=== PATIENT | male | born 1990 | race Caucasian/White ===

== ENCOUNTER 2024-07-01 08:36 | Inpatient (IN) | payer MEDICARE, OTHER ==
[~2024-07-01] VITALS: Ht 172.7 cm; Wt 79.0 kg
[~2024-07-01 08:36] MED LIST: [UNRECOGNIZED DRUG - REMARK]
--- NOTE | 2024-07-01 09:33 | ED.PDOC ---
History of Present Illness HPI Comments 33 y/o M, with a Hx of seizures and EtOH abuse, is BIBA for c/o seizure and generalized facial pain and bruising s/p fall and head injury, today. Per EMS report, patient is reported to have had a single, witnessed seizure episode characterized by "foaming at the mouth" that lasted in 1x minute in duration, t his morning. Patient was stated to also had fallen forward and face-planted onto the ground during seizure onset. On scene, patient was found in post-ictal state, with no noted bleeding, by EMS staff. At time of assessment, patient is back to his baseline and admits to, recently, drinking a pint of vodka everyday, with last intake at 0300, today, in addition to switching to Keppra from Dilantin. He denies having any additional injuries or other associated symptoms or modifiers at this time. Chief Complaint: Seizure Time Seen by MD: 08:55 Primary Care Provider: UNABLE TO RECALL Reviewed Notes: Nurses Notes, Filer Repairer Notes, Medications, Allergies Allergies: Coded Allergies: NO KNOWN ALLERGIES (Unverified , 01/28/13) Home Meds Reported Medications [Unable To Recall Seizure Medication] No Conflict Check 01/28/13 Information Source: Patient, Emergency Med Personnel Mode of Arrival: EMS Severity: Moderate Timing: Hours Duration: Minutes Prehospital treatment: 12 Lead EKG, Crm System Administrator Past Medical History PAST MEDICAL HISTORY: Seizures Surgical History: Denies all surgeries Family History Family History: Unknown Social History Smoker: Non-Smoker Alcohol: Heavy Drugs: Denies Drug Use Lives In: Home EENTM: reports: others (facial pain ) Neurological: reports: seizure Integumetry: reports: bruises (generalized facial bruising ) All Other Systems: Reviewed and Negative (negative unless otherwise stated above or in HPI) Physical Exam General Appearance: Moderate Distress HEENT: Normal ENT Inspection, Pharynx Normal, TMs Normal Neck: Full Range of Motion, Non-Tender, Normal, Normal Inspection Respiratory: Chest Non-Tender, Lungs Clear, No Accessory Muscle Use, No Respiratory Distress, Normal Breath Sounds Cardiovascular: No Edema, No JVD, No Murmur, No Gallop, Normal Peripheral Pulses, Regular Rate/Rhythm Breast Exam: Deferred Gastrointestinal: No Organomegaly, Non Tender, No Pulsatile Mass, Normal Bowel Sounds, Soft Genitalia: Deferred Pelvic: Deferred Rectal: Deferred Extremities: No calf tenderness, Normal capillary refill, Normal inspection, Normal range of motion, Non-tender, No pedal edema Musculoskeletal : Apperance: Normal Neurologic: Disoriented, No Motor Deficits, Normal Affect, No Sensory Deficits Cerebellar Function: NOT DONE Reflexes: NOT DONE Skin: Bruises (Nasal), Dry, Normal Color, Warm Peripheral Pulses: 3+ Radial (R), 3+ Radial (L) Lymphatic: No Adenopathy Was a procedure done? Was a procedure done?: No Differential Dx Considerations may include: seizures, pseudoseizures, EtOH-induced seizures, dehydration, electrolyte imbalance, closed head injury, fractures, contusion, bruising X-Ray, Labs, Meds, VS Vital Signs Date Time Temp Pulse Resp B/P (MAP) Pulse Ox O2 Delivery O2 Flow Rate FiO2 07/01/24 10:00 97.8 73 18 110/72 (85) 100 97.8 07/01/24 09:39 83 15 99 Nasal Cannula* 2 28 07/01/24 09:16 83 18 105/68 (80) 98 07/01/24 08:44 97.8 103 16 142/98 (113) 98 Lab Test 07/01/24 09:58 07/01/24 09:09 Range/Units White Blood Count 14.1 H 4.4-10.8 10^3/uL Red Blood Count 5.24 4.5-5.90 10^6/uL Hemoglobin 14.2 13.5-17.5 g/dL Hematocrit 44.0 41.0-53.0 % Mean Corpuscular Volume 84.0 80.0-100.0 fL Mean Corpuscular Hemoglobin 27.1 L 28.0-32.0 pg Mean Corpuscular Hemoglobin Concent 32.3 32.0-36.0 g/dL Red Cell Distribution Width 13.7 11.8-14.3 % Platelet Count 314 140-450 10^3/uL Mean Platelet Volume 8.1 6.9-10.8 fL Neutrophils (%) (Auto) 82.8 H 37.0-80.0 % Lymphocytes (%) (Auto) 9.8 L 10.0-50.0 % Monocytes (%) (Auto) 6.3 0.0-12.0 % Eosinophils (%) (Auto) 0.8 0.0-7.0 % Basophils (%) (Auto) 0.3 0.0-2.0 % Neutrophils # (Auto) 11.7 H 1.6-8.6 10 ^3/uL Lymphocytes # (Auto) 1.4 0.4-5.4 10 ^3/uL Monocytes # (Auto) 0.9 0-1.3 10 ^3/uL Eosinophils # (Auto) 0.1 0-0.8 10 ^3/uL Basophils # (Auto) 0 0-0.2 10 ^3/uL Nucleated Red Blood Cells 0.0 % Sodium Level 141 136-145 mmol/L Potassium Level 4.7 3.5-5.1 mmol/L Chloride Level 112 H 98-107 mmol/L Carbon Dioxide Level 24 20-31 mmol/L Anion Gap 5 5-15 Blood Urea Nitrogen 9 9-23 mg/dL Creatinine 0.89 0.700-1.30 mg/dL Glomerular Filtration Rate Calc 118 >90 mL/min BUN/Creatinine Ratio 10.1 10.0-20.0 Serum Glucose 97 74-106 mg/dL Calcium Level 9.9 8.7-10.4 mg/dL Plasma/Serum Blood Alcohol < 3.0 <10 mg/dL POC Glucose 102 70-106 mg/dl Current Medications Medications (Trade) Dose Ordered Sig/Daniel Route Start Time Stop Time Status Last Admin Sodium Chloride 1,000 ml @ 1,000 mls/hr Q1H ONCE IV 07/01/24 09:30 07/01/24 10:29 DC 07/01/24 09:49 Sodium Chloride 1,000 ml @ 150 mls/hr Q6H40M ONCE IV 07/01/24 09:30 07/01/24 16:09 07/01/24 09:49 Thiamine HCl 100 mg ONCE ONCE IV 07/01/24 09:30 07/01/24 09:31 DC 07/01/24 09:49 Acetaminophen/ Hydrocodone Bitart ([place] 5/325MG Tab) 1 tab ONCE ONCE PO 07/01/24 10:30 07/01/24 10:31 DC 07/01/24 10:39 Patient postictal. Does have bruising of the nose. Fell on his face. Vitals stable. Answering all questions. History of alcohol abuse. Establish intravenous access. Was given fluids. Was given thiamine. Reviewed his previous history. Continue cardiac monitoring. Time of 1ST Reevaluation: 09:25 Reevaluation 1ST: Unchanged Patient Education/Counseling: Diagnosis, Treatment Family Education/Counseling: No Family Present Departure 1 Departure Time of Disposition: 09:43 Impression: Primary Impression: Alcohol abuse Additional Impression: Seizure Disposition: 09 ADMITTED INPATIENT Admit to: Med Surg Condition: Guarded Critical Care Note Critical Care Time?: Yes (45 min-critical care time only) Stability Stability form required: No Heart Score Heart Score: Heart Score Response (Comments) Value History N/A 0 EKG N/A 0 Age N/A 0 Risk Factors N/A 0 Troponin N/A 0 Total 0 I personally scribed for KYLIE DEL REAL MD ([email or web address]) on 07/01/24 at 09:33. Electronically submitted by Ag Cruz ([email or web address]). KYLIE DEL REAL MD Jul 01, 2024 09:33
[2024-07-01 09:39] VITALS: PULSE 83; RESP 15; O2SAT 99
[2024-07-01] MEDS: THIAMINE 100mg/ml INJ (200mg/2ml VIAL) IV ONE (09:49)
[2024-07-01] MEDS: SODIUM CHLORIDE 0.9% 1,000 ML IV ONE ×4 (09:49→12:30)
[2024-07-01 10:00] VITALS: TEMP 97.8
[2024-07-01] MEDS: HYDROcodone-ACET 5/325MG TAB PO ONE (10:39)
[2024-07-01 10:41] LABS: Basophils # (auto) 0 10 ^3/uL (0-0.2); Basophils % (auto) 0.3 % (0.0-2.0); Eosinophils # (auto) 0.1 10 ^3/uL (0-0.8); Eosinophils % (auto) 0.8 % (0.0-7.0); Hemoglobin 14.2 g/dL (13.5-17.5); Lymphocytes # (auto) 1.4 10 ^3/uL (0.4-5.4); Lymphocytes % (auto) 9.8 % (10.0-50.0); Mean Corpuscular Hemoglobin 27.1 pg (28.0-32.0); Mean Corpuscular Hgb Conc. 32.3 g/dL (32.0-36.0); Monocytes # (auto) 0.9 10 ^3/uL (0-1.3); Monocytes % (auto) 6.3 % (0.0-12.0); Neutrophils # (auto) 11.7 10 ^3/uL (1.6-8.6); Neutrophils % (auto) 82.8 % (37.0-80.0); Platelet Count (auto) 314 10^3/uL (140-450); Red Blood Cells 5.24 10^6/uL (4.5-5.90); Red Cell Distribution Width 13.7 % (11.8-14.3); White Blood Cell 14.1 10^3/uL (4.4-10.8)
[2024-07-01 10:53] LABS: Anion Gap 5 (5-15); Carbon Dioxide 24 mmol/L (20-31); Potassium 4.7 mmol/L (3.5-5.1); Sodium 141 mmol/L (136-145)
[2024-07-01 10:54] LABS: Calcium 9.9 mg/dL (8.7-10.4)
[2024-07-01 10:56] LABS: Chloride 112 mmol/L (98-107)
[2024-07-01 10:59] LABS: BUN/Creatinine Ratio 10.1 (10.0-20.0); Glucose 97 mg/dL (74-106)
[2024-07-01 11:14] LABS: Blood Alcohol < 3.0 mg/dL (<10); Blood Urea Nitrogen 9 mg/dL (9-23)
[2024-07-01] MEDS: LORazepam 2MG/ML-1ML VIAL IV ONE ×2 (12:41→13:00)
[2024-07-01] MEDS: LORazepam 2MG/ML-1ML VIAL IV PRN (12:41)
[2024-07-01] MEDS: LORazepam 2MG/ML-1ML VIAL ONE (12:41)
[2024-07-01] MEDS ORDERED: ACETAMINOPHEN 325 MG TAB PO PRN (13:00)
[2024-07-01] MEDS ORDERED: HYDROcodone-ACET 5/325MG TAB PO PRN (13:00)
[2024-07-01] MEDS ORDERED: DOCUSATE SOD 100 MG CAP PO PRN (13:00)
[2024-07-01] MEDS ORDERED: ONDANSETRON HCL 4 MG/2 ML VIAL IV PRN (13:00)
--- NOTE | 2024-07-01 13:13 | DVHHP2 ---
History of Present Illness Reason for Visit: Seizure disorder History of Present Illness Patient is a 33-year-old male with past medical history of seizure who presented to [facility] ED for evaluation of seizures activity. Patient's reports he was experiencing seizure activities at home associated with gener alized weakness, fell and had head injury, swollen right eyes, bruises all over his face. As reported by EMS, patient had a single, witnessed seizure episode characterized by "foaming at the mouth" that lasted in 1x minute in duration, this morning. Patient was stated to also had fallen forward and face-planted onto the ground during seizure onset. On scene, patient was found in post-ictal state, with no noted bleeding. Patient was seen and evaluated in the ED, laboratory data shows WBC 14.1, platelets 304, sodium 141, potassium 4.7, BUN 9, creatinine 0.89, GFR 118, glucose 97, blood pressure 110/72, heart rate 72, temperature 97.8 F, O2 saturation 99% on oxygen. Please see medication orders section in the computer. On my assessment, patient's at bedside, no headache, no dizziness, no diaphoresis, no palpitations, no loss of consciousness, no shortness of breaths, no nausea, no vomiting, no fever, no chills. Patient was admitted for further evaluation and medical management. Past Medical History Seizures Past Surgical History Denies all surgeries Family History Reviewed, noncontributory to the management of this case. Past Social History The patient lives at home, drinks alcohol heavily, denies cigarettes or illicit drugs abuse. Review of Systems Constitutional: Yes: Weakness, Other (Head trauma); No: Fever, Chills, Sweats, Malaise Eyes: No: Pain, Vision change, Conjunctivae inflammation, Eyelid inflammation, Other, Redness ENT: No: Ear pain, Ear discharge, Nose pain, Nose discharge, Nose congestion, Mouth pain, Mouth swelling, Throat pain, Throat swelling, Other Respiratory: No: Cough, Dry, Shortness of breath, SOB with excertion, Wheezing, Hemoptysis, Pleuritic Pain, Sputum, Wheezing, Other Cardiovascular: No: Chest Pain, Palpitations, Orthopnea, Paroxysmal Noc. Dyspnea, Edema, Lt Headedness, Other Gastrointestinal: No: Nausea, Vomiting, Abdominal Pain, Diarrhea, Constipation, Melena, Hematochezia, Other Genitourinary: No Dysuria, No Frequency, No Incontinence, No Hematuria, No Retention, No Other Musculoskeletal: No: other, neck pain, shoulder pain, arm pain, back pain, hand pain, leg pain, foot pain Skin: Other (Facial bruises); No: Rash, Lesions, Jaundice, Bruising Neurological: Seizures; No: Weakness, Numbness, Incoordination, Change in speech, Confusion, Other Allergies: Coded Allergies: NO KNOWN ALLERGIES (Unverified , 01/28/13) Medications Current Medications Medications Dose Ordered Sig/Daniel Route Start Time Stop Time Status Last Admin Dose Admin Lorazepam 1 mg Q5MINP PRN IV 07/01/24 12:30 07/01/24 12:41 1 MG Thiamine HCl 100 mg DAILY PO 07/02/24 10:00 UNV Folic Acid 1 mg DAILY PO 07/02/24 10:00 UNV Multivitamins 1 tab DAILY PO 07/02/24 10:00 UNV Sodium Chloride 10 ml Q8HR IV 07/01/24 14:00 UNV Acetaminophen/ Hydrocodone Bitart 1 tab Q4HP PRN PO 07/01/24 13:00 UNV Ondansetron HCl 4 mg Q4HP PRN IV 07/01/24 13:00 UNV Docusate Sodium 100 mg BIDPRN PRN PO 07/01/24 13:00 UNV Acetaminophen 650 mg Q6HP PRN PO 07/01/24 13:00 UNV Exam Vital Signs Vital Signs Date Time Temp Pulse Resp B/P (MAP) Pulse Ox O2 Delivery O2 Flow Rate FiO2 07/01/24 12:00 95 18 106/61 (76) 100 07/01/24 10:00 97.8 97.8 07/01/24 09:39 Nasal Cannula* 2 28 General Appearance: Alert, Oriented X3, Cooperative, No acute distress HEENT: Atraumatic, PERRLA, EOMI, Mucous membr. moist/pink Respiratory: Clear to auscultation, Normal air movement Cardiovascular: Regular rate, Normal S1, Normal S2, No murmurs Abdominal: Normal bowel sounds, Soft, No tenderness, No hepatospenomegaly, No masses Extremities: No clubbing, No cyanosis, No edema, Normal pulses, No tenderness/swelling Skin: No rashes, No breakdown, No significant lesion Neuro: Normal speech, Normal tone, Sensation intact, Cranial nerves 3-12 NL, Reflexes 2+, Other (Head trauma) Psych/Mental Status: Mental status NL, Mood NL Labs/Xrays Labs Test 07/01/24 09:58 07/01/24 09:09 Range/Units White Blood Count 14.1 H 4.4-10.8 10^3/uL Red Blood Count 5.24 4.5-5.90 10^6/uL Hemoglobin 14.2 13.5-17.5 g/dL Hematocrit 44.0 41.0-53.0 % Mean Corpuscular Volume 84.0 80.0-100.0 fL Mean Corpuscular Hemoglobin 27.1 L 28.0-32.0 pg Mean Corpuscular Hemoglobin Concent 32.3 32.0-36.0 g/dL Red Cell Distribution Width 13.7 11.8-14.3 % Platelet Count 314 140-450 10^3/uL Mean Platelet Volume 8.1 6.9-10.8 fL Neutrophils (%) (Auto) 82.8 H 37.0-80.0 % Lymphocytes (%) (Auto) 9.8 L 10.0-50.0 % Monocytes (%) (Auto) 6.3 0.0-12.0 % Eosinophils (%) (Auto) 0.8 0.0-7.0 % Basophils (%) (Auto) 0.3 0.0-2.0 % Neutrophils # (Auto) 11.7 H 1.6-8.6 10 ^3/uL Lymphocytes # (Auto) 1.4 0.4-5.4 10 ^3/uL Monocytes # (Auto) 0.9 0-1.3 10 ^3/uL Eosinophils # (Auto) 0.1 0-0.8 10 ^3/uL Basophils # (Auto) 0 0-0.2 10 ^3/uL Nucleated Red Blood Cells 0.0 % Sodium Level 141 136-145 mmol/L Potassium Level 4.7 3.5-5.1 mmol/L Chloride Level 112 H 98-107 mmol/L Carbon Dioxide Level 24 20-31 mmol/L Anion Gap 5 5-15 Blood Urea Nitrogen 9 9-23 mg/dL Creatinine 0.89 0.700-1.30 mg/dL Glomerular Filtration Rate Calc 118 >90 mL/min BUN/Creatinine Ratio 10.1 10.0-20.0 Serum Glucose 97 74-106 mg/dL Calcium Level 9.9 8.7-10.4 mg/dL Plasma/Serum Blood Alcohol < 3.0 <10 mg/dL POC Glucose 102 70-106 mg/dl PATIENT: RONALD JAMIL ACCT: [id number] UNIT: [id number] : 1990 LOC: TELE ROOM / BED: [address] [place] [address] AGE / SEX: 33 / M ADM STATUS: ADM IN SERVICE 1335 ORDERING PHYSICIAN: ARLETTE CAIN DNP PROCEDURE(s): HWOCT - HEAD WITHOUT CONTRAST REASON: head trauma ORDER NUMBER(s): [id number], ACCESSION NUMBER(s): [id number] CT brain without contrast CLINICAL INDICATION: Altered mental status Technique: The study was performed in a multidetector scanner. This study performed taking axial images from the skull base up to the vertex. Both brain and bone windows are photographed. Dose lowering techniques have been used including automated exposure control and adjustment of mA and/or KV according to patient size. Findings: No intraparenchymal hemorrhage or edema. No extra-axial hemorrhage No hydrocephalus. No midline shift. No fractures on bone windows. Right frontal scalp cephalohematoma There is mucosal thickening in the right anterior ethmoid sinus air cells. There is an air-fluid level in the right maxillary sinus IMPRESSION: 1. No acute intracranial injury. 2. Right frontal scalp swelling 3. Right-sided paranasal sinus disease Computed Tomographic Radiation Dosimetry Report: Total CTDI vol = 59 mGy Total DLP = 1048 mGy-cm All CT scans at this medical facility are performed using dose modulation techniques as appropriate to a performed exam including the following: Automated exposure control was utilized; adjustment of the MA and/or KvP according to patient size; and use of iterative reconstruction technique. Assessment/Plan Assessment/Plan Alcohol abuse Seizure disorder Head trauma Generalized weakness Plan 1. Admit to telemetry unit 2. Breathing treatment 3. Pain control management 4. Management of fluids and electrolytes 5. Consultation for Neurology 6. Diagnostic tests head CT 7. DVT prophylaxis-on SCDs 8. Repeat labs CBC, CMP in a.m. 9. Continue with current medical management 10. Treatment plan discussed with patient and RN. Patient verbalized understanding. Plan discussed with: Patient, Spouse (At bedside), Other (RN) My Orders Orders - ARLETTE CAIN DNP Procedure Category Date Status Time Thiamine Tab PHA 07/02/24 Logged 10:00 Folic Acid Tablet PHA 07/02/24 Logged 10:00 Multiple Vitamin PHA 07/02/24 Logged Tablet (Mvi Tab) 10:00 Allergies TAYLOR 07/01/24 In Process 12:46 Code Status CODE 07/01/24 Transmitted 12:46 Sodium Chloride Lock PHA 07/01/24 Logged (Saline Lock Ns) 14:00 Oxygen Per Hour RT 07/01/24 Transmitted 12:46 Hydrocodone-Acet PHA 07/01/24 Logged 5/325mg Tab ([place] 13:00 Ondansetron Hcl PHA 07/01/24 Logged (Zofran) 13:00 Docusate Sodium PHA 07/01/24 Logged Capsule (Colace 13:00 Fall Risk Precautions TAYLOR 07/01/[address] 12:46 Complete Blood Count LAB 07/02/24 Verified 04:00 Comprehensive LAB 07/02/24 Verified Metabolic Panel 04:00 Cardiac DIET 07/01/24 Transmitted Diet-2gna,Lofat,Lochol Lunch Condition: Serious TAYLOR 07/01/24 In Process 12:46 Acetaminophen Tablet PHA 07/01/24 Logged (Tylenol Tablet) 13:00 Sequential TAYLOR 07/01/24 In Process Compression Device Problem List: (1) Alcohol abuse (2) Seizure disorder (3) Head trauma (4) Generalized weakness Date of Service: Jul 01, 2024 Billing Provider: ARLETTE CAIN DNP Common Visit Codes: 05637-[id number] INP/OBS CARE (HIGH) ARLETTE CAIN DNP Jul 01, 2024 13:13
[2024-07-01] MEDS ORDERED: NITROGLYCERIN 0.4 MG SL TAB SL PRN (13:15)
[2024-07-01] MEDS ORDERED: MORPHINE SULFATE INJ 2 MG/ml SYRG IV PRN (13:15)
[2024-07-01 13:23] LABS: Urine Bacteria None Seen /hpf (None Seen)
--- NOTE | 2024-07-01 13:58 | DVH ---
CT brain without contrast CLINICAL INDICATION: Altered mental status Technique: The study was performed in a multidetector scanner. This study performed taking axial jeff ges from the skull base up to the vertex. Both brain and bone windows are photographed. Dose lowering techniques have been used including automated exposure control and adjustment of mA and /or KV according to patient size. Findings: No intraparenchymal hemorrhage or edema. No extra-axial hemorrhage No hydrocephalus. No midline shift. No fractures on bone windows. Right frontal scalp cephalohematoma There is mucosal thickening in the right anterior ethmoid sinus air cells. There is an air-fluid leve l in the right maxillary sinus IMPRESSION: 1. No acute intracranial injury. 2. Right frontal scalp swelling 3. Right-sided paranasal sinus disease Computed Tomographic Radiation Dosimetry Report: Total CTDI vol = 59 mGy Total DLP = 1048 mGy-cm All CT scans at this medical facility are performed using dose modulation techniques as appropriate t o a performed exam including the following: Automated exposure control was utilized; adjustment of the MA and/or KvP according to patient size; a nd use of iterative reconstruction technique.
[2024-07-01 14:01] LABS: Amphetamine Screen, Urine Neg (NEGATIVE); Barbiturate Scree,Urine Neg (NEGATIVE); Benzodiazephine Screen, Urine Pos (NEGATIVE); Cannabinoid Screen, Urine Pos (NEGATIVE); Cocaine Screen, Urine Neg (NEGATIVE); Opiate Scree,Urine Neg (NEGATIVE); Phencyclidine Screen, Urine Neg (NEGATIVE)
[2024-07-01 14:06] LABS: Urine Blood Negative /uL (Negative); Urine Clarity Clear (Clear); Urine Color Light-Yellow (Yellow); Urine Protein, UAD Negative (Negative); Urine Specific Gravity 1.009 (1.001-1.035); Urine Urobilinogen Normal (Negative); Urine WBC <1 /hpf (0 - 3)
[2024-07-01] MEDS: SODIUM CHLOR 0.9% PF (SALINE LOCK) 10ML VIAL/SYR IV SCH (14:16)
[2024-07-01 15:00] VITALS: BP 93/56; PULSE 78; RESP 18; O2SAT 100
[2024-07-02] MEDS ORDERED: MULTIPLE VITAMIN TAB PO SCH (10:00)
[2024-07-02] MEDS ORDERED: FOLIC ACID 1 MG TAB PO SCH (10:00)
[2024-07-02] MEDS ORDERED: THIAMINE HCL 100 MG TAB PO SCH (10:00)
== END 2024-07-01 15:40 | disposition left against medical advice (07) | DRG 101 ==
LOC: EDUNIT# 08:36 → EDBD 08:36 → ER 08:36 → TELE 13:12
PROVIDERS: ADMIT Nurse Practitioner Family; ATTEND Nurse Practitioner Family
DX: G40.909 Epilepsy, unspecified, not intractable, without status epilepticus (principal); S00.83XA Contusion of other part of head, initial encounter; Z53.29 Procedure and treatment not carried out because of patient's decision for other reasons; F10.10 Alcohol abuse, uncomplicated; Z79.899 Other long term (current) drug therapy; W18.39XA Other fall on same level, initial encounter; Y93.89 Activity, other specified; Y92.89 Other specified places as the place of occurrence of the external cause; Y99.8 Other external cause status; Y90.0 Blood alcohol level of less than 20 mg/100 ml
CPT/HCPCS: 36415; 70450; 80048; 80307; 80320; 81001; 82962; 85025; 87086; 99291; G0378

== ENCOUNTER 2024-09-01 19:35 | Emergency (ER) | payer MEDICARE, MEDICAID ==
[~2024-09-01] VITALS: Ht 175.3 cm; Wt 79.5 kg
[2024-09-01 19:39] VITALS: BP 122/84; PULSE 87; RESP 18; O2SAT 98
--- NOTE | 2024-09-01 20:10 | ED.PDOC ---
History of Present Illness HPI Comments 34 y/o M, with a history of seizures, is BIBA for c/o multiple seizure episodes, today. Patient reports on his mother and calling on his behalf, earlier, today, after having several seizure episodes at home and then being concern for his airway when they thought he "stop breathing" afterwards. Per EMS report, patient's family reported on patient having 5x petite mal and 3x grand mal seizures, today, and was administered 2x emergency doses of Diazepam IN doses at home prior to their arrival, with patient's last seizure being 3x days ago. On scene, patient was found in post-ictal state and with a blood glucose of 100. At time of assessment, patient reports mixed compliancy history with his seizure medications and, usually, having 2-3x episodes every week, with an endorsement of an upcoming appointment regarding issue with his neurologist. He denies any trauma or any associated symptoms at this time. Chief Complaint: Seizure Time Seen by MD: 19:40 Primary Care Provider: UNABLE TO RECALL Reviewed Notes: Nurses Notes, Medications, Allergies Allergies: Coded Allergies: NO KNOWN ALLERGIES (Unverified , 01/28/13) Home Meds Reported Medications [Unable To Recall Seizure Medication] No Conflict Check 01/28/13 Information Source: Patient, Emergency Med Personnel Mode of Arrival: EMS Severity: Moderate Timing: Hours Duration: Minutes Prehospital treatment: 12 Lead EKG, Accucheck (100), Group Home Counselor, IVF, Other (20G RAC) Past Medical History PAST MEDICAL HISTORY: Seizures Surgical History: Denies all surgeries Family History Family History: Unknown Social History Smoker: Non-Smoker Alcohol: Heavy Drugs: Denies Drug Use Lives In: Home Neurological: reports: seizure All Other Systems: Reviewed and Negative (negative unless otherwise stated above or in HPI) Physical Exam General Appearance: No Apparent Distress, Normal HEENT: Normal ENT Inspection, Pharynx Normal, TMs Normal Neck: Full Range of Motion, Non-Tender, Normal, Normal Inspection Respiratory: Chest Non-Tender, Lungs Clear, No Accessory Muscle Use, No Respiratory Distress, Normal Breath Sounds Cardiovascular: No Edema, No JVD, No Murmur, No Gallop, Normal Peripheral Pulses, Regular Rate/Rhythm Breast Exam: Deferred Gastrointestinal: No Organomegaly, Non Tender, No Pulsatile Mass, Normal Bowel Sounds, Soft Genitalia: Deferred Pelvic: Deferred Rectal: Deferred Extremities: No calf tenderness, Normal capillary refill, Normal inspection, Normal range of motion, Non-tender, No pedal edema Musculoskeletal : Apperance: Normal Neurologic: Alert, auto top mechanic II-XII nml as Tested, No Motor Deficits, Normal Affect, Normal Mood, No Sensory Deficits Cerebellar Function: Normal Reflexes: Normal Skin: Dry, Normal Color, Warm Lymphatic: No Adenopathy Was a procedure done? Was a procedure done?: No Differential Dx Considerations may include: seizure, pseudoseizure, medication noncompliance, hypoxia X-Ray, Labs, Meds, VS Vital Signs Date Time Temp Pulse Resp B/P (MAP) Pulse Ox O2 Delivery O2 Flow Rate FiO2 09/01/24 19:39 97.9 87 18 122/84 (97) 98 Time of 1ST Reevaluation: 20:10 Reevaluation 1ST: Unchanged Patient Education/Counseling: Diagnosis, Treatment Family Education/Counseling: No Family Present Additional Information Previous visit documents reviewed: 07/01/24 ED physician documentation note The following tests were ordered, and results were reviewed by me: Additional Information was gathered from interviewing the following independent historians: EMS I discussed treatment and results with medical personnel: patient Departure 1 Departure Time of Disposition: 21:37 (Patient had a breakthrough seizure. Patient's said his baseline does not want any more medication. We will discharge patient with outpatient follow up) Impression: Primary Impression: Breakthrough seizure Disposition: 01 HOME / SELF CARE / HOMELESS Condition: Stable Additional Instructions: You had a breakthrough seizure today. It is important to take your seizure medication. You should stay well rested and well hydrated. You should follow up with your regular doctor within 1 week. If your symptoms worsen or you have any other concerns then please return to the emergency room. Discharged With: Self Critical Care Note Critical Care Time?: No Stability Stability form required: No Heart Score Heart Score: Heart Score Response (Comments) Value History N/A 0 EKG N/A 0 Age N/A 0 Risk Factors N/A 0 Troponin N/A 0 Total 0 I personally scribed for LLOYD ESPINOZA MD ([email or web address]) on 09/01/24 at 20:10. Electronically submitted by Ag Cruz [email or web address]). LLOYD ESPINOZA MD Sep 01, 2024 20:10
== END 2024-09-01 23:05 | disposition home or self-care (01) ==
LOC: ER 19:35 → EDBD 19:35 → ER 23:05
DX: G40.909 Epilepsy, unspecified, not intractable, without status epilepticus (principal); F10.90 Alcohol use, unspecified, uncomplicated; Y90.0 Blood alcohol level of less than 20 mg/100 ml

== ENCOUNTER 2025-02-16 15:26 | Inpatient (IN) | payer MEDICARE, MEDICAID ==
[~2025-02-16] VITALS: Ht 170.2 cm; Wt 76.3 kg
--- NOTE | 2025-02-16 16:09 | ED.PDOC ---
HPI (NEURO) HPI Comments 34 y.o male with PMHx of seizures and a spinal injury sustained in a fall f5 years prior, was BIB for evaluation of ALOC. reports that for the past 3-4 weeks, the patient has experienced intermittent right-sided headaches, associated with abdominal pain, nausea, and vomiting. mentions that 4 days ago, patient had 6-7 small seizure episodes lasting approximately 2 days, followed by a postictal state of no more than a couple of hours. last observed the patient at his normal baseline around midnight last night. Currently, the patient appears altered, is holding the right side of his head, is unable to follow commands, and cannot answer questions. He is prescribed 3,000mg of Keppra daily and receives care from a neurologist at [facility]. His confirms there have been no recent medication alterations or changes Chief Complaint: ALOC Time Seen by MD: 15:39 Primary Care Provider: UNABLE TO RECALL Reviewed Notes: Nurses Notes, Medications, Allergies Information Source: Spouse Mode of Arrival: Ambulatory Severity: Moderate Headache Severity: Moderate Timing: Weeks (1) Duration: Since onset Seizure Quality: Mulitple Episodes Headache Quality: Throbbing, Sharp Headache Location: Other (right sided ) Seizure Location: Generalized Onset: At rest Circumstances: Spontaneous Before: Ill During: LOC After: Confusion History of: Seizure Disorder Associated Signs and Symptoms: Headache Past Medical History PAST MEDICAL HISTORY: Seizures Surgical History (Other): spine Family History Family History: Unknown Social History Smoker: Non-Smoker Alcohol: Denies ETOH Use Drugs: Denies Drug Use Lives In: Home Unable to Obtain due to: Altered Mental Status Physical Exam General Appearance: Other (altered) HEENT: Normal ENT Inspection Neck: Normal Inspection Respiratory: No Accessory Muscle Use, No Respiratory Distress, Normal Breath Sounds Cardiovascular: No Edema, No JVD, No Murmur, No Gallop, Regular Rate/Rhythm Breast Exam: Deferred Gastrointestinal: No Organomegaly, No Pulsatile Mass, Normal Bowel Sounds Genitalia: Deferred Pelvic: Deferred Rectal: Deferred Extremities: Normal inspection Neurologic: Seizure, Other (Catatonic. Arousable to touch. ) Cerebellar Function: Unable to Test Reflexes: NOT DONE Skin: Normal Color Lymphatic: NOT DONE Was a procedure done? Was a procedure done?: No Differential Diagnosis (SZ) Seizure: Psychogenic Seizure, Alcohol Withdrawl, Anticonvulsant Withdrawl, Closed Head Injury, Encephalopathy, Epilepsy-Break Through, Epilepsy-Status CVA: CVA, Drug Overdose, Electrolyte Imbalance, Encephalopathy, Hypoxemia, TIA X-Ray, Labs, Meds, VS Vital Signs Date Time Temp Pulse Resp B/P (MAP) Pulse Ox O2 Delivery O2 Flow Rate FiO2 02/16/25 18:30 81 24 111/71 (84) 97 02/16/25 16:46 Room Air* 0 21 02/16/25 16:30 98.7 79 18 136/82 (100) 99 98.7 02/16/25 15:29 100.9 106 19 116/77 98 100.9 Lab Test 02/16/25 16:25 Range/Units White Blood Count 12.3 H 4.4-10.8 10^3/uL Red Blood Count 5.27 4.5-5.90 10^6/uL Hemoglobin 14.8 13.5-17.5 g/dL Hematocrit 43.8 41.0-53.0 % Mean Corpuscular Volume 83.1 80.0-100.0 fL Mean Corpuscular Hemoglobin 28.0 28.0-32.0 pg Mean Corpuscular Hemoglobin Concent 33.8 32.0-36.0 g/dL Red Cell Distribution Width 13.2 11.8-14.3 % Platelet Count 216 140-450 10^3/uL Mean Platelet Volume 9.1 6.9-10.8 fL Neutrophils (%) (Auto) 68.7 37.0-80.0 % Lymphocytes (%) (Auto) 16.6 10.0-50.0 % Monocytes (%) (Auto) 13.7 H 0.0-12.0 % Eosinophils (%) (Auto) 0.4 0.0-7.0 % Basophils (%) (Auto) 0.6 0.0-2.0 % Neutrophils # (Auto) 8.4 1.6-8.6 10 ^3/uL Lymphocytes # (Auto) 2.0 0.4-5.4 10 ^3/uL Monocytes # (Auto) 1.7 H 0-1.3 10 ^3/uL Eosinophils # (Auto) 0.1 0-0.8 10 ^3/uL Basophils # (Auto) 0.1 0-0.2 10 ^3/uL Nucleated Red Blood Cells 0.1 % Platelet Estimate Adequate Clumped Platelets Few Anisocytosis (manual) Slight Sodium Level 139 136-145 mmol/L Potassium Level 4.1 3.5-5.1 mmol/L Chloride Level 106 98-107 mmol/L Carbon Dioxide Level 21 20-31 mmol/L Anion Gap 12 5-15 Blood Urea Nitrogen 9 9-23 mg/dL Creatinine 1.00 0.700-1.30 mg/dL Glomerular Filtration Rate Calc 103 >90 mL/min BUN/Creatinine Ratio 9.0 L 10.0-20.0 Serum Glucose 97 74-106 mg/dL Calcium Level 9.5 8.7-10.4 mg/dL Total Bilirubin 0.4 0.2-1.0 mg/dL Aspartate Amino Transferase (AST) 15 13-40 U/L Alanine Aminotransferase (ALT) 17 7-40 U/L Alkaline Phosphatase 84 46-116 U/L Ammonia < 10 L 11-32 umol/L Total Protein 7.3 5.7-8.2 g/dL Albumin 4.9 H 3.2-4.8 g/dL Current Medications Medications (Trade) Dose Ordered Sig/Daniel Route Start Time Stop Time Status Last Admin Lorazepam (Ativan Inj) 1 mg ONCE ONCE IM 02/16/25 16:30 02/16/25 16:31 DC 02/16/25 16:33 Levetiracetam 100 ml @ 400 mls/hr ONCE ONCE IV 02/16/25 16:30 02/16/25 16:44 DC 02/16/25 16:34 X-Ray, Labs, Meds, VS Comment Imaging was reviewed by this provider, there is no obvious pathological or acute disease process. Pending radiology review Labs were reviewed by this provider, no abnormalities Vital signs reviewed by this provider, clinically stable Patient is still on somewhat catatonic/somnolence state Recommend Neurology consult Patient was given 1 g of Keppra Airway is protected Seizure precautions this in place Time of 1ST Reevaluation: 15:49 Reevaluation 1ST: Unchanged Patient Education/Counseling: Other (patient is altered ) Family Education/Counseling: Diagnosis, Treatment, Prognosis Departure 1 Departure Time of Disposition: 19:10 Impression: Primary Impression: Altered mental status Qualified Codes: R40.0 - Somnolence Disposition: ADMITTED INPATIENT Condition: Guarded Critical Care Note Critical Care Time?: Yes Critical care comment: I have personally spent 35 minutes of critical care time, exclusive of the time spent on any procedures, in evaluation and management of this critically ill patient's conditions. I provided the following cleared of care treatment: Review of CT scans administrations of Ativan, and monitoring seizure activity Stability Stability form required: No I personally scribed for VIVIANA ALICEA [facility] on 02/16/25 at 16:09. Electronically submitted by Ayesha Lema ([facility]). VIVIANA ALICEA Feb 16, 2025 16:09
--- NOTE | 2025-02-16 16:25 | DVH ---
CT HEAD WITHOUT CONTRAST Indication: aloc EXAM DATE: 02/16/2025 03:59 PM COMPARISON: CT HEAD WITHOUT CONTRAST on DOS: 07/01/24 TECHNIQUE: CT of the head without intravenous contrast. RADIATION DOSE: CTDIvol: 55 mGy, DLP: 177 mGy*cm FINDINGS: There is no intracranial hemorrhage. There is no extra-axial fluid, mass, mass effect or midline shif t. The ventricles are midline and normal in size. Basilar cisterns are patent. Cardenas-white differentia tion is maintained. The paranasal sinuses and mastoids are well-pneumatized. Imaged portion of the orbits are unremarkabl e. IMPRESSION: No intracranial hemorrhage or mass effect.
--- NOTE | 2025-02-16 16:31 | DVH ---
CHEST RADIOGRAPH Indication: fever Technique: Single frontal view of the chest was obtained Comparison: None FINDINGS: Lines and Tubes: None Lungs: No focal consolidation. Pleura: No effusion. No pneumothorax. Cardiomediastinal contours: Unremarkable Bones: Pedicle screws and rods in place in the lower thoracic and lumbar spine IMPRESSION: 1. No acute cardiopulmonary disease. HS:Y
[2025-02-16] MEDS: LORazepam 2MG/ML-1ML VIAL ONE (16:32)
[2025-02-16] MEDS: LORazepam 2MG/ML-1ML VIAL IM ONE (16:33)
[2025-02-16] MEDS: levETIRAcetam 1000 mg/100ml 100 ML IV ONE (16:34)
[2025-02-16 16:42] LABS: Hematocrit 43.8 % (41.0-53.0); Hemoglobin 14.8 g/dL (13.5-17.5); Mean Corpuscular Hemoglobin 28.0 pg (28.0-32.0); Mean Corpuscular Volume 83.1 fL (80.0-100.0); Nucleated Red Blood Cells % 0.1 %
[2025-02-16 17:01] LABS: Anisocytosis Slight
[2025-02-16 18:21] LABS: Alanine Aminotransferase 17 U/L (7-40); Albumin 4.9 g/dL (3.2-4.8); Alkaline Phosphatase 84 U/L (46-116); Anion Gap 12 (5-15); BUN/Creatinine Ratio 9.0 (10.0-20.0); Bilirubin, Total 0.4 mg/dL (0.2-1.0); Blood Urea Nitrogen 9 mg/dL (9-23); Calcium 9.5 mg/dL (8.7-10.4); Carbon Dioxide 21 mmol/L (20-31); Chloride 106 mmol/L (98-107); Glucose 97 mg/dL (74-106); Potassium 4.1 mmol/L (3.5-5.1); Sodium 139 mmol/L (136-145); Total Protein 7.3 g/dL (5.7-8.2)
[2025-02-16] MEDS: TOPIRAMATE 100 MG TAB PO ONE (19:05)
[2025-02-16 19:46] LABS: Urine Protein, UAD Negative (Negative)
[2025-02-16 19:55] LABS: Cannabinoid Screen, Urine Pos (NEGATIVE)
[2025-02-16] MEDS ORDERED: NITROGLYCERIN 0.4 MG SL TAB SL PRN (20:00)
[2025-02-16] MEDS ORDERED: MORPHINE SULFATE INJ 2 MG/ml SYRG IV PRN (20:00)
[2025-02-16 20:31] LABS: Amphetamine Screen, Urine Neg (NEGATIVE); Barbiturate Scree,Urine Neg (NEGATIVE); Benzodiazephine Screen, Urine Neg (NEGATIVE); Cocaine Screen, Urine Neg (NEGATIVE); Opiate Scree,Urine Neg (NEGATIVE); Phencyclidine Screen, Urine Neg (NEGATIVE)
[2025-02-16] MEDS: LORazepam 2MG/ML-1ML VIAL IV PRN (21:29)
--- NOTE | 2025-02-16 21:39 | DVHHP2 ---
History of Present Illness Reason for Visit: Seizure History of Present Illness 34-year-old male with a history of epilepsy presents for evaluation of seizures. Patient is currently lethargic and not answering questions. Per the patient's fiancee was at the bedside patient has been having migraines with nausea and vomiting intermittently for the past two weeks. She states that over the past two days he has been having small seizures throughout the day. Today he had a grand mal seizure lasting approximately 35 seconds. She reports patient being compliant with seizure medications. He is being followed by Nephrology at [place]. No oral trauma or incontinence. Past Medical History Epilepsy Past Surgical History Spine surgery Family History Noncontributory Lives: with Family Review of Systems Review of Systems Review of systems are limited due to the patient's altered mental status. Allergies: Coded Allergies: NO KNOWN ALLERGIES (Unverified , 01/28/13) Medications Current Medications Medications Dose Ordered Sig/Daniel Route Start Time Stop Time Status Last Admin Dose Admin Nitroglycerin 0.4 mg Q5MINP PRN SL 02/16/25 20:00 Morphine Sulfate 2 mg Q30M PRN IV 02/16/25 20:00 Lorazepam 1 mg Q5MINP PRN IV 02/16/25 21:30 02/16/25 21:29 1 MG Exam Vital Signs Vital Signs Date Time Temp Pulse Resp B/P (MAP) Pulse Ox O2 Delivery O2 Flow Rate FiO2 02/16/25 18:30 81 24 111/71 (84) 97 02/16/25 16:46 Room Air* 0 21 02/16/25 16:30 98.7 98.7 Exam Gen: 34-year-old male Skin: Warm, dry, normal color and texture, no rash. HEENT: Normocephalic atraumatic, mucous membranes moist and pink. Neck: Cervical and supraclavicular nodes normal without enlargement, trachea is midline, thyroid gland is normal without masses. Pulmonary: Clear to auscultation and percussion bilaterally. Cardiac: Regular rate and rhythm. No murmur Abdomen: Soft, nontender, nondistended, bowel sounds present all 4 quadrants, no guarding, no rigidity, no organomegaly. Extremities: No cyanosis, clubbing, no edema Neuro: Lethargic Labs/Xrays ORDERING PHYSICIAN: VIVIANA ALICEA PROCEDURE(s): HWOCT - HEAD WITHOUT CONTRAST REASON: aloc ORDER NUMBER(s): [id number], ACCESSION NUMBER(s): [id number] CT HEAD WITHOUT CONTRAST Indication: aloc EXAM DATE: 02/16/2025 03:59 PM COMPARISON: CT HEAD WITHOUT CONTRAST on DOS: 07/01/24 TECHNIQUE: CT of the head without intravenous contrast. RADIATION DOSE: CTDIvol: 55 mGy, DLP: 177 mGy*cm FINDINGS: There is no intracranial hemorrhage. There is no extra-axial fluid, mass, mass effect or midline shift. The ventricles are midline and normal in size. Basilar cisterns are patent. Cardenas-white differentiation is maintained. The paranasal sinuses and mastoids are well-pneumatized. Imaged portion of the orbits are unremarkable. IMPRESSION: No intracranial hemorrhage or mass effect. RING PHYSICIAN: VIVIANA ALICEA PROCEDURE(s): CXR1 - CHEST XRAY 1 VIEW REASON: fever ORDER NUMBER(s): [id number], ACCESSION NUMBER(s): [id number] CHEST RADIOGRAPH Indication: fever Technique: Single frontal view of the chest was obtained Comparison: None FINDINGS: Lines and Tubes: None Lungs: No focal consolidation. Pleura: No effusion. No pneumothorax. Cardiomediastinal contours: Unremarkable Bones: Pedicle screws and rods in place in the lower thoracic and lumbar spine IMPRESSION: 1. No acute cardiopulmonary disease. HS:Y Labs Test 02/16/25 19:30 02/16/25 19:16 02/16/25 16:25 Range/Units Urine Color Light-yellow Yellow Urine Clarity Clear Clear Urine pH 7.0 5.0-9.0 Urine Specific [place] 1.012 1.001-1.035 Urine Protein Negative Negative Urine Ketones 1+ H Negative Urine Blood Negative Negative /uL Urine Nitrite Negative Negative Urine Bilirubin Negative Negative Urine Urobilinogen Normal Negative mg/dL Urine Leukocyte Esterase Negative Negative /uL Urine RBC <1 0 - 3 /hpf Urine Microscopic WBC 1 0-3 /HPF Urine Squamous Epithelial Cells None seen <5 /hpf Urine Bacteria None seen None Seen /hpf Urine Glucose Normal Normal mg/dL Urine Opiates Screen Neg NEGATIVE Urine Fentanyl Screen Neg NEGATIVE Urine Barbiturates Screen Neg NEGATIVE Urine Phencyclidine Screen Neg NEGATIVE Urine Amphetamines Screen Neg NEGATIVE Urine Benzodiazepines Screen Neg NEGATIVE Urine Cocaine Screen Neg NEGATIVE Urine Cannabinoids Screen Pos NEGATIVE White Blood Count 12.3 H 4.4-10.8 10^3/uL Red Blood Count 5.27 4.5-5.90 10^6/uL Hemoglobin 14.8 13.5-17.5 g/dL Hematocrit 43.8 41.0-53.0 % Mean Corpuscular Volume 83.1 80.0-100.0 fL Mean Corpuscular Hemoglobin 28.0 28.0-32.0 pg Mean Corpuscular Hemoglobin Concent 33.8 32.0-36.0 g/dL Red Cell Distribution Width 13.2 11.8-14.3 % Platelet Count 216 140-450 10^3/uL Mean Platelet Volume 9.1 6.9-10.8 fL Neutrophils (%) (Auto) 68.7 37.0-80.0 % Lymphocytes (%) (Auto) 16.6 10.0-50.0 % Monocytes (%) (Auto) 13.7 H 0.0-12.0 % Eosinophils (%) (Auto) 0.4 0.0-7.0 % Basophils (%) (Auto) 0.6 0.0-2.0 % Neutrophils # (Auto) 8.4 1.6-8.6 10 ^3/uL Lymphocytes # (Auto) 2.0 0.4-5.4 10 ^3/uL Monocytes # (Auto) 1.7 H 0-1.3 10 ^3/uL Eosinophils # (Auto) 0.1 0-0.8 10 ^3/uL Basophils # (Auto) 0.1 0-0.2 10 ^3/uL Nucleated Red Blood Cells 0.1 % Platelet Estimate Adequate Clumped Platelets Few Anisocytosis (manual) Slight Sodium Level 139 136-145 mmol/L Potassium Level 4.1 3.5-5.1 mmol/L Chloride Level 106 98-107 mmol/L Carbon Dioxide Level 21 20-31 mmol/L Anion Gap 12 5-15 Blood Urea Nitrogen 9 9-23 mg/dL Creatinine 1.00 0.700-1.30 mg/dL Glomerular Filtration Rate Calc 103 >90 mL/min BUN/Creatinine Ratio 9.0 L 10.0-20.0 Serum Glucose 97 74-106 mg/dL Calcium Level 9.5 8.7-10.4 mg/dL Total Bilirubin 0.4 0.2-1.0 mg/dL Aspartate Amino Transferase (AST) 15 13-40 U/L Alanine Aminotransferase (ALT) 17 7-40 U/L Alkaline Phosphatase 84 46-116 U/L Ammonia < 10 L 11-32 umol/L Total Protein 7.3 5.7-8.2 g/dL Albumin 4.9 H 3.2-4.8 g/dL SEPSIS Sepsis Screen Date sepsis recognized/suspect: Feb 16, 2025 Time Sepsis recognized/suspect: 1647 Recent Procedure: No On Antibiotic Therapy: No Respiratory Rate >20: No Heart Rate >90: No Temp<36 C (96.8 F) or >38.3 C: No SBP <90 or MAP <65 mmHG: No New Acute Mental Status Change: Yes Is the patient on CPAP, BIPAP,: No Physician Orders Head Without Contrast (02/16/25 16:10) Chest Xray 1 View (02/16/25 16:11) Topiramate (Topamax) (02/16/25 18:58) Admit (02/16/25 19:56) Nitroglycerin Sublingual (Ntrostat Subli (02/16/25 20:00) Morphine Sulfate Injection (02/16/25 20:00) Stat Ekg For Chest Pain (02/16/25 19:56) Notify Md Of Changes From Base (02/16/25 19:56) Control Director For 24 Hours (02/16/25 19:56) Emergency Dysrhythmia Protocol (02/16/25 19:56) Rhythm Strips Once Every Shift (02/16/25 19:56) Oxygen By Nasal Cannula (02/16/25 19:56) Seizure Precautions In Place (02/16/25 21:19) Lorazepam 2mg/Ml Inj (Ativan Inj) (02/16/25 21:30) * Neurology Consult (02/16/25 21:31) Brain Head Wo Contrast (02/16/25 21:31) Folic Acid Tablet (02/17/25 10:00) Levetiracetam Tablet (Keppra Tablet) (02/16/25 22:00) Regular Diet (02/17/25 Breakfast) Basic Metabolic Panel (02/17/25 04:00) Magnesium (02/17/25 04:00) Ondansetron Hcl (Zofran) (02/16/25 21:45) Condition: Stable (02/16/25 21:31) Acetaminophen Tablet (Tylenol Tablet) (02/16/25 21:45) Bedrest With Bathroom Privileg (02/16/25 21:31) Vital Signs Date Time Temp Pulse Resp B/P (MAP) Pulse Ox O2 Delivery O2 Flow Rate FiO2 02/16/25 18:30 81 24 111/71 (84) 97 02/16/25 16:46 Room Air* 0 21 02/16/25 16:30 98.7 79 18 136/82 (100) 99 98.7 02/16/25 15:29 100.9 106 19 116/77 98 100.9 Laboratory Tests Test 02/16/25 16:25 White Blood Count 12.3 10^3/uL (4.4-10.8) H Medications Medications Dose Ordered Sig/Daniel Route Start Time Stop Time Status Last Admin Dose Admin Levetiracetam 100 ml @ 400 mls/hr ONCE ONCE IV 02/16/25 16:30 02/16/25 16:44 DC 02/16/25 16:34 400 MLS/HR Lorazepam 1 mg ONCE ONCE IM 02/16/25 16:30 02/16/25 16:31 DC 02/16/25 16:33 1 MG Lorazepam 1 mg Q5MINP PRN IV 02/16/25 21:30 02/16/25 21:29 1 MG Topiramate 100 mg ONCE ONCE PO 02/16/25 19:00 02/16/25 19:01 DC 02/16/25 19:05 100 MG Assessment/Plan Assessment/Plan Assessment Acute encephalopathy Breakthrough seizure Plan Admit the patient to [facility] to the hospitalist Nephrology consultation MRI of the brain pending Resume home medications Seizure precautions in place Continue treatment per orders. Plan discussed with: Other My Orders Orders - KIMBERLEE COLORADO Procedure Category Date Status Time Admit ADMIT 02/16/25 Transmitted 19:56 Nitroglycerin PHA 02/16/25 In Process Sublingual (Ntrostat 20:00 Morphine Sulfate PHA 02/16/25 In Process Injection 20:00 Stat Ekg For Chest [facility] 02/16/25 In Process Pain 19:56 Notify Of Changes [facility] 02/16/25 In Process From Base 19:56 Control Director For [facility] 02/16/25 In Process 24 Hours 19:56 Emergency Dysrhythmia [facility] 02/16/25 In Process Protocol 19:56 Rhythm Strips Once [facility] 02/16/25 In Process Every Shift 19:56 Oxygen By Nasal RT 02/16/25 Transmitted Cannula 19:56 Seizure Precautions [facility] 02/16/[address] 21:19 Lorazepam 2mg/Ml Inj PHA 02/16/25 In Process (Ativan Inj) 21:30 * Neurology Consult CONS 02/16/25 Verified 21:31 Brain Head Wo Contrast MRI 02/16/25 Verified 21:31 Folic Acid Tablet PHA 02/17/25 Verified 10:00 Levetiracetam Tablet PHA 02/16/25 Verified (Keppra Tablet) 22:00 Regular Diet DIET 02/17/25 Verified Breakfast Basic Metabolic Panel LAB 02/17/25 Verified 04:00 Magnesium LAB 02/17/25 Verified 04:00 Ondansetron Hcl PHA 02/16/25 Verified (Zofran) 21:45 Condition: Stable [facility] 02/16/25 Verified 21:31 Acetaminophen Tablet PHA 02/16/25 Verified (Tylenol Tablet) 21:45 Bedrest With Bathroom [facility] 02/16/25 Verified Privileg 21:31 Date of Service: Feb 16, 2025 Billing Provider: KIMBERLEE COLORADO Common Visit Codes: [id number] INP/OBS CARE (HIGH) KIMBERLEE [place]O Feb 16, 2025 21:39
[2025-02-16] MEDS ORDERED: ONDANSETRON HCL 4 MG/2 ML VIAL IV PRN (21:45)
[2025-02-16] MEDS ORDERED: ACETAMINOPHEN 325 MG TAB PO PRN (21:45)
[2025-02-16 21:52] VITALS: RESP 25; O2SAT 96
[2025-02-16 23:00] VITALS: BP 107/63; PULSE 63; RESP 16; O2SAT 97
[2025-02-17] MEDS: levETIRAcetam 500 MG TAB PO SCH (00:24)
[2025-02-17 02:12] VITALS: BP 99/59; PULSE 72; RESP 17; O2SAT 94
[2025-02-17 04:34] VITALS: BP 100/69; PULSE 78; RESP 20; O2SAT 97
[2025-02-17] MEDS: SODIUM CHLORIDE 0.9% 500 ML IV ONE (05:09)
[2025-02-17 05:52] VITALS: BP 100/60; PULSE 81; RESP 13; O2SAT 99
[2025-02-17 06:30] LABS: Anion Gap 11 (5-15); Calcium 8.7 mg/dL (8.7-10.4); Carbon Dioxide 21 mmol/L (20-31); Potassium 3.5 mmol/L (3.5-5.1); Sodium 139 mmol/L (136-145)
[2025-02-17 06:31] LABS: Chloride 107 mmol/L (98-107)
[2025-02-17 06:34] LABS: Glucose 94 mg/dL (74-106)
[2025-02-17 06:35] LABS: Magnesium 2.1 mg/dL (1.6-2.6)
[2025-02-17 06:47] LABS: BUN/Creatinine Ratio 8.6 (10.0-20.0)
[2025-02-17 06:48] LABS: Blood Urea Nitrogen 7 mg/dL (9-23)
[2025-02-17 07:00] VITALS: TEMP 98.4
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
[2025-02-17 09:17] VITALS: PULSE 64; RESP 24; O2SAT 96
[2025-02-17] MEDS: FOLIC ACID 1 MG TAB PO SCH (10:13)
[2025-02-17] MEDS: TOPIRAMATE 100 MG TAB PO SCH ×2 (10:13→10:30)
[2025-02-17] MEDS ORDERED: SUMAtriptan SUCCINATE 6 MG/0.5 ML VL SC PRN (10:30)
[2025-02-17] MEDS ORDERED: LORazepam 2MG/ML-1ML VIAL IV PRN (10:30)
[2025-02-17 12:00] VITALS: BP 95/59; PULSE 70; RESP 23; O2SAT 94
--- NOTE | 2025-02-17 13:46 | DVH ---
PROCEDURE: MRI BRAIN HEAD WO CONTRAST Indication: Breakthrough seizure COMPARISON: CT HEAD WITHOUT CONTRAST on DOS: 02/16/25, TECHNIQUE: Multiplanar multisequence images of the brain are obtained. FINDINGS: There is no abnormal diffusion restriction. Few scattered T2/FLAIR hyperintense signals within the pe riventricular / subcortical white matter There is no intracranial hemorrhage. No extra-axial fluid co llection, mass effect or midline shift. The ventricles are midline and normal in size. The cisterns a re patent. Normal intracranial flow voids are preserved. No abnormal susceptibility signal. No eviden ce for increased T2 signal within the medial temporal lobes. No hippocampal atrophy. Mild mucosal thickening of the ethmoids. Mastoids well pneumatized. The visualized orbits are unrema rkable. IMPRESSION: No acute cerebrovascular ischemia. Few scattered foci T2/FLAIR hyperintense signal in the periventricular/subcortical white matter, nons pecific could represent sequela of migraines, vasculitis or within normal limits for patient's age.
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
[2025-02-17] MEDS ORDERED: KEP500T PO (15:46)
[2025-02-17] MEDS ORDERED: TOPI100T68 PO (15:46)
== END 2025-02-17 16:48 | disposition home or self-care (01) | DRG 101 ==
LOC: ER 15:26 → OVERFLOW 19:56
PROVIDERS: ADMIT Internal Medicine Geriatric Medicine; ATTEND Internal Medicine Geriatric Medicine
DX: G40.409 Other generalized epilepsy and epileptic syndromes, not intractable, without status epilepticus (principal); G40.209 Localization-related (focal) (partial) symptomatic epilepsy and epileptic syndromes with complex partial seizures, not intractable, without status epilepticus; G43.909 Migraine, unspecified, not intractable, without status migrainosus; Z87.891 Personal history of nicotine dependence; Z79.899 Other long term (current) drug therapy
CPT/HCPCS: 36415; 70450; 70551; 71045; 80048; 80053; 80201; 80307; 81001; 82140; 83735; 85025; 96365; 96372; 96375; 99291; G0378

== ENCOUNTER 2025-04-12 19:16 | Emergency (ER) | payer MEDICARE, MEDICAID ==
[~2025-04-12] VITALS: Ht 175.3 cm; Wt 68.2 kg
[~2025-04-12 19:16] MED LIST changes: +KEP500T PO; +TOPI100T68 PO
[2025-04-12 19:28] VITALS: TEMP 98.5; O2SAT 97
--- NOTE | 2025-04-12 20:12 | ED.PDOC ---
HPI (NEURO) HPI Comments 34-year-old male who came to ER via EMS for seizures. Patient known daily alcohol drinker, with a history of seizures, currently on Keppra. Was drinking heavily again earlier today, when he had 2 witnessed seizures episode at home, had 3 more seizures while of the ambulance. Patient was given 5 mg Versed while EN route to the ER. Chief Complaint: Seizure Time Seen by MD: 20:12 Primary Care Provider: UNABLE TO RECALL Reviewed Notes: Food Technologist Notes Information Source: Patient, Emergency Med Personnel Mode of Arrival: EMS Severity: Moderate Dizziness/Weakness Severity: Unable to do activities Headache Severity: Moderate Timing: Hours Duration: Intermittent Prehospital treatment: Oxygen, Treatment (Versed) Seizure Quality: Tonic-clonic Past Medical History PAST MEDICAL HISTORY: Seizures Surgical History: Denies all surgeries Family History Family History: Reviewed,noncontributory to illness Social History Smoker: Non-Smoker Alcohol: Heavy Drugs: Denies Drug Use Lives In: Home Unable to Obtain due to: Altered Mental Status, Other (Patient postictal) Physical Exam General Appearance: No Apparent Distress, Normal HEENT: Normal ENT Inspection, Pharynx Normal, TMs Normal Neck: Full Range of Motion, Non-Tender, Normal, Normal Inspection Respiratory: Chest Non-Tender, Lungs Clear, No Accessory Muscle Use, No Respiratory Distress, Normal Breath Sounds Cardiovascular: No Edema, No JVD, No Murmur, No Gallop, Normal Peripheral Pulses, Regular Rate/Rhythm Breast Exam: Deferred Gastrointestinal: No Organomegaly, Non Tender, No Pulsatile Mass, Normal Bowel Sounds, Soft Genitalia: Deferred Pelvic: Deferred Rectal: Deferred Extremities: No calf tenderness, Normal capillary refill, Normal inspection, Normal range of motion, Non-tender, No pedal edema Musculoskeletal : Apperance: Normal Neurologic: Alert, senior research project manager II-XII nml as Tested, No Motor Deficits, Normal Affect, Normal Mood, No Sensory Deficits Cerebellar Function: Normal Reflexes: Normal Skin: Dry, Normal Color, Warm Lymphatic: No Adenopathy Was a procedure done? Was a procedure done?: No Differential Diagnosis (SZ) Seizure: Psychogenic Seizure, Alcohol Withdrawl, Encephalopathy, Epilepsy-Break Through, Epilepsy-Status X-Ray, Labs, Meds, VS Vital Signs Date Time Temp Pulse Resp B/P (MAP) Pulse Ox O2 Delivery O2 Flow Rate FiO2 04/12/25 21:00 81 11 109/62 (78) 98 04/12/25 20:01 80 04/12/25 20:00 87 20 105/59 (74) 100 04/12/25 19:28 97 Non-Rebreather 15 N/A 04/12/25 19:28 98.5 92 23 97/53 (68) 97 98.5 04/12/25 19:16 98.6 110 22 72/47 99 98.6 Lab Test 04/12/25 21:00 04/12/25 19:58 Range/Units White Blood Count 8.4 4.4-10.8 10^3/uL Red Blood Count 4.88 4.5-5.90 10^6/uL Hemoglobin 13.8 13.5-17.5 g/dL Hematocrit 40.7 L 41.0-53.0 % Mean Corpuscular Volume 83.5 80.0-100.0 fL Mean Corpuscular Hemoglobin 28.2 28.0-32.0 pg Mean Corpuscular Hemoglobin Concent 33.8 32.0-36.0 g/dL Red Cell Distribution Width 13.7 11.8-14.3 % Platelet Count 263 140-450 10^3/uL Mean Platelet Volume 8.2 6.9-10.8 fL Neutrophils (%) (Auto) 55.9 37.0-80.0 % Lymphocytes (%) (Auto) 35.9 10.0-50.0 % Monocytes (%) (Auto) 4.5 0.0-12.0 % Eosinophils (%) (Auto) 3.1 0.0-7.0 % Basophils (%) (Auto) 0.6 0.0-2.0 % Neutrophils # (Auto) 4.7 1.6-8.6 10 ^3/uL Lymphocytes # (Auto) 3.0 0.4-5.4 10 ^3/uL Monocytes # (Auto) 0.4 0-1.3 10 ^3/uL Eosinophils # (Auto) 0.3 0-0.8 10 ^3/uL Basophils # (Auto) 0.1 0-0.2 10 ^3/uL Nucleated Red Blood Cells 0.1 % Sodium Level 144 136-145 mmol/L Potassium Level 3.7 3.5-5.1 mmol/L Chloride Level 110 H 98-107 mmol/L Carbon Dioxide Level 22 20-31 mmol/L Anion Gap 12 5-15 Blood Urea Nitrogen 6 L 9-23 mg/dL Creatinine 0.86 0.700-1.30 mg/dL Glomerular Filtration Rate Calc 118 >90 mL/min BUN/Creatinine Ratio 7.0 L 10.0-20.0 Serum Glucose 79 74-106 mg/dL Calcium Level 8.9 8.7-10.4 mg/dL Plasma/Serum Blood Alcohol 145.5 H <10 mg/dL POC Glucose 88 70-106 mg/dl Time of 1ST Reevaluation: 20:10 Reevaluation 1ST: Unchanged Patient Education/Counseling: Diagnosis, Treatment, Other (In postictal at this time) Family Education/Counseling: No Family Present Departure 1 Departure Time of Disposition: 00:08 (Patient presenting with likely breakthrough seizures. Patient signed AMA and left) Impression: Primary Impression: Breakthrough seizure Disposition: 07 LEFT AGAINST MEDICAL ADVICE Condition: Serious Critical Care Note Critical Care Time?: No Stability Stability form required: No Heart Score Heart Score: Heart Score Response (Comments) Value History N/A 0 EKG N/A 0 Age N/A 0 Risk Factors N/A 0 Troponin N/A 0 Total 0 I personally scribed for LLOYD ESPINOZA MD ([email or web address]) on 04/12/25 at 20:12. Electronically submitted by Alvaro Barton ([facility]). LLOYD ESPINOZA MD Apr 12, 2025 20:12
[2025-04-12 21:00] VITALS: BP 109/62; PULSE 81; RESP 11; O2SAT 98
[2025-04-12] MEDS ORDERED: SODIUM CHLORIDE 0.9% 1,000 ML IV ONE (21:00)
[2025-04-12] MEDS: levETIRAcetam 1000 mg/100ml 100 ML IV ONE (21:18)
[2025-04-12 21:31] LABS: Hematocrit 40.7 % (41.0-53.0); Hemoglobin 13.8 g/dL (13.5-17.5); Mean Corpuscular Hemoglobin 28.2 pg (28.0-32.0); Mean Corpuscular Volume 83.5 fL (80.0-100.0); Nucleated Red Blood Cells % 0.1 %
[2025-04-12 21:38] LABS: Potassium 3.7 mmol/L (3.5-5.1); Sodium 144 mmol/L (136-145)
[2025-04-12 21:39] LABS: Anion Gap 12 (5-15); Calcium 8.9 mg/dL (8.7-10.4); Carbon Dioxide 22 mmol/L (20-31)
[2025-04-12 21:44] LABS: BUN/Creatinine Ratio 7.0 (10.0-20.0); Glucose 79 mg/dL (74-106)
[2025-04-12 21:49] LABS: Blood Urea Nitrogen 6 mg/dL (9-23); Chloride 110 mmol/L (98-107)
--- NOTE | 2025-04-13 07:09 | ECG ---
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
== END 2025-04-13 00:09 | disposition left against medical advice (07) ==
LOC: EDBD 19:16 → ER 19:28
DX: G40.909 Epilepsy, unspecified, not intractable, without status epilepticus (principal); Z79.899 Other long term (current) drug therapy
CPT/HCPCS: 36415; 80048; 80320; 82947; 82962; 85025; 93005